=== PATIENT | female | born 1975 | race Caucasian/White ===

== ENCOUNTER 2017-07-29 17:19 | Inpatient (IN) | payer OTHER ==
[~2017-07-29] VITALS: Ht 170.2 cm; Wt 120.3 kg
--- NOTE | ~2017-07-29 | S ---
[facility] [place] [address] SURGICAL PATH RPT PROCEDURE Name: NIYA HEART S Room #: 417-I [facility] IN .R.#: [id number] Admission: 07/29/17 Date of : 73 Discharge: 07/30/17 Report #: [id number] Path Case #: [id number] PATHOLOGY REPORT COLLECTION DATE: 07/30/2017 RECEIVED DATE: 07/30/2017 SUBMITTING PHYS: Dr. Siddharth Wilson, DO OTHER PHYS: Dr. Vinod George SPECIMEN(S) RECEIVED: A.Appendix * * * * * * * * * * * * FINAL DIAGNOSIS: Appendix, appendectomy: - Marked acute appendicitis along with acute serositis. - Fibrous obliteration of the tip. (IUV:mgr; 07/31/2017) PATHOLOGIST: Kimberly Lyn M.D. REPORT ELECTRONICALLY SIGNED BY: Kimberly Lyn M.D. DATE/TIME: 07/31/2017 15:13 * * * * * * * * * * * * GROSS PATHOLOGY: Received in formalin labeled "AlvaroNiya, appendix," is an appendix measuring 7.5 cm in length and 0.8 cm in diameter with a small amount of attached mesoappendix. The serosal surface is pink-[place] with adhesions. Sectioning reveals a patent to dilated lumen containing fecal material. Microfilming Document Preparer sections are submitted in cassette A1. (SDY; 07/30/2017) CLINICAL HISTORY: Acute appendicitis INITIAL CPT CODE(S): A; 45918 Professional services performed by [facility] at [facility] [address] [place] [address] Technical services performed by [facility] at [address] [place] [id number]. [facility] [address] [place] [address] SURGICAL PATH RPT PROCEDURE Name: NIYA HEART Room #: 417-I [facility] IN .R.#: [id number] Admission: 07/29/17 Date of : 73 Discharge: 07/30/17 Report #: [id number] Path Case #: [id number] [facility] [address] [address] PHONE: [phone] DIRECTOR: Christopher Daley M.D. * * * END OF REPORT * * *
[2017-07-29 17:29] VITALS: BP 157/88
[2017-07-29] MEDS ORDERED: LISINOPRIL-HCT1 EAC2 PO (18:13)
[2017-07-29] MEDS ORDERED: SYNTHROID75 MCG PO (18:13)
[2017-07-29] MEDS ORDERED: LIALDA1.2 GM PO (18:14)
[2017-07-29] MEDS ORDERED: REMICADE 1100 MG/VIA MISCELL (18:17)
[2017-07-29 18:36] LABS: ABSOLUTE NEUTROPHILS 10.4 thou/uL (1.4-8.2); BASOPHILS 1.1 % (0.0-2.0); HEMATOCRIT 40.6 % (37.0-47.0); HEMOGLOBIN 13.4 gm/dL (12.0-15.0); LYMPHOCYTES 27.9 % (24.0-44.0); MCH 29.5 pg (26.0-34.0); MCV 89.6 fL (80.0-100.0); MONOCYTES 6.1 % (1.0-8.0); PLATELET COUNT 350 thou/uL (150-400); POLYS 62.9 % (36.0-66.0); RBC 4.53 mil/uL (4.20-5.00); RDW 13.9 % (10.5-14.5); WBC 16.5 thou/uL (4.0-11.0)
[2017-07-29 21:45] VITALS: BP 117/72
[2017-07-30] VITALS (7 sets, daily range): BP systolic 98–143; BP diastolic 58–82
[2017-07-30 05:47] LABS: HEMATOCRIT 40.1 % (37.0-47.0); MCH 29.1 pg (26.0-34.0); MCHC 32.4 g/dL (28.0-37.0); MCV 89.7 fL (80.0-100.0); RBC 4.47 mil/uL (4.20-5.00); RDW 13.8 % (10.5-14.5); WBC 14.5 thou/uL (4.0-11.0)
[2017-07-30 06:06] LABS: CALCIUM 8.6 mg/dL (8.5-10.1); CREATININE 0.7 mg/dL (0.6-1.0); POTASSIUM 3.7 mmol/L (3.5-5.1)
[2017-07-30 06:57] LABS: URINE BILIRUBIN NEGATIVE (Negative); URINE BLOOD NEGATIVE (Negative); URINE CLARITY CLEAR; URINE COLOR YELLOW; URINE GLUCOSE-RANDOM* NEGATIVE (Negative); URINE KETONES NEGATIVE (Negative); URINE LEUKOCYTES NEGATIVE (Negative); URINE NITRITE NEGATIVE (Negative); URINE PROTEIN (DIPSTICK) NEGATIVE (Negative)
[2017-07-30] MEDS ORDERED: HYDROCODONE-AP1 EAC6 PO (08:25)
[2017-07-30] MEDS ORDERED: ZOFRAN4 MG PO (08:25)
== END 2017-07-30 17:51 | disposition home or self-care (01) | DRG 337 ==
LOC: 4E 17:36 → EROBS 17:36 → 4E 19:43 → ENTRNSPT 07-30 17:00 → 4E 07-30 17:51
PROVIDERS: Nurse Practitioner Family; Surgery
PROC: 0DTJ4ZZ Resection of Appendix, Percutaneous Endoscopic Approach (ICD-10-PCS; principal; 2017-07-30)
PROC: 0DNW4ZZ Release Peritoneum, Percutaneous Endoscopic Approach (ICD-10-PCS; principal; 2017-07-30)
DX: K35.80 Unspecified acute appendicitis (principal); E03.9 Hypothyroidism, unspecified; I10 Essential (primary) hypertension; K66.0 Peritoneal adhesions (postprocedural) (postinfection); Z88.6 Allergy status to analgesic agent; Z88.1 Allergy status to other antibiotic agents; Z88.0 Allergy status to penicillin; Z79.899 Other long term (current) drug therapy
CPT/HCPCS: 10084; 50010; 50101; 50249; 50411; 50555; 50558; 50739; 50740; 50962; 51975; 52265; 53307; 53310; 54022; 54118; 56525; 56526; 62110; 62900; 70005

== ENCOUNTER → 2019-01-21 | Outpatient (CLI) | payer OTHER ==
[~2019-01-21] MED LIST: HYDROCODONE-AP1 EAC6 PO; LIALDA1.2 GM PO; LISINOPRIL-HCT1 EAC2 PO; REMICADE 1100 MG/VIA MISCELL; SYNTHROID75 MCG PO; ZOFRAN4 MG PO
== END ==
LOC: ULTRA 10:03
DX: K76.0 Fatty (change of) liver, not elsewhere classified (principal)

== ENCOUNTER → 2020-02-29 | Outpatient (CLI) | payer OTHER | LOC: LAB 13:58 | PROVIDERS: ATTEND Family Medicine | DX: Z20.828 Contact with and (suspected) exposure to other viral communicable diseases (principal) ==